=== PATIENT | female | born 1965 | race Caucasian/White ===

== ENCOUNTER 2020-10-16 17:16 | Emergency (ER) | payer MEDICAID ==
[2020-10-16] MEDS ORDERED: Cyclobenzaprine 10 MG Tab PO ONE (17:17)
[2020-10-16] MEDS ORDERED: Sodium Chloride 0.9% 10 ML Syringe FLUSH PRN (17:45)
[2020-10-16] MEDS ORDERED: Ondansetron 4 MG/2 ML SDV IVPUSH STA (18:03)
[2020-10-16] MEDS ORDERED: Pantoprazole 40 MG Vial IVPUSH ONE (18:03)
[2020-10-16] MEDS ORDERED: Morphine 4 MG/ML VIAL IVPUSH STA (18:03)
--- NOTE | 2020-10-16 18:15 | EDM.PDOC ---
ED HPI GENERAL MEDICAL PROBLEM - General Chief Complaint: Gastrointestinal Problem Stated Complaint: Abdominal pain Time Seen by Provider: 10/16/20 17:20 Source of Information: Reports: Patient, Family History Limitations: Reports: No Limitations - History of Present Illness INITIAL COMMENTS - FREE TEXT/NARRATIVE: Patient is a 54 YO WF who presented to the ED because of abdominal pain and melanotic stools. It started as diarrhea 5 days ago. 2 days ago she started to have melanotic stools which according to her was foul smelling. At about 12 noon today she started to have LLQ pain,8/10, cramping with associated nausea but no vomiting. - Related Data Allergies Allergy/AdvReac Type Severity Reaction Status Date / Time Penicillins Allergy Hives Verified 10/16/20 18:03 Sulfa (Sulfonamide Allergy Hives Verified 10/16/20 18:03 Antibiotics) Home Meds: Home Meds NK [No Known Home Meds] 10/16/20 [History] Past Medical History Genitourinary History: Reports: Other (See Below) Other Genitourinary History: Medullary Sponge Kidney Disease Musculoskeletal History: Reports: Back Pain, Chronic Social & Family History - Family History Family Medical History: No Pertinent Family History - Tobacco Use Tobacco Use Status *Q: Never Tobacco User - Caffeine Use Caffeine Use: Reports: None - Recreational Drug Use Recreational Drug Use: No ED ROS GENERAL - Review of Systems Review Of Systems: See Below Constitutional: Reports: No Symptoms HEENT: Reports: No Symptoms Respiratory: Reports: No Symptoms Cardiovascular: Reports: No Symptoms Endocrine: Reports: No Symptoms GI/Abdominal: Reports: Abdominal Pain, Black Stool, Nausea : Reports: No Symptoms Musculoskeletal: Reports: No Symptoms Skin: Reports: No Symptoms ED EXAM, GI/ABD - Physical Exam Exam: See Below Exam Limited By: No Limitations General Appearance: No Apparent Distress Ears: Normal External Exam, Normal Canal Nose: Normal Inspection, Normal Mucosa Throat/Mouth: Normal Inspection Head: Atraumatic, Normocephalic Neck: Normal Inspection, Supple, Non-Tender, Full Range of Motion Respiratory/Chest: No Respiratory Distress, Lungs Clear, Normal Breath Sounds Cardiovascular: Normal Peripheral Pulses, Regular Rate, Rhythm, No Edema, No Gallop, No JVD, No Murmur, No Rub GI/Abdominal Exam: Normal Bowel Sounds, Soft, Other (LLQ tenderness) Back Exam: Normal Inspection, Full Range of Motion Extremities: Normal Inspection, Normal Range of Motion Neurological: Alert, Oriented, CN II-XII Intact Course - Vital Signs Text/Narrative:: Lab result was reviewed and discussed with patient NS 1 L bolus Zofran 4 mg IV x1 Protonix 80 mg IV x1 Morphine 4 mg IV x1 Last Recorded V/S: Last Vital Signs Temp 36.6 C 10/16/20 17:16 Pulse 72 10/16/20 20:46 Resp 18 10/16/20 20:46 BP 151/86 H 10/16/20 20:46 Pulse Ox 97 10/16/20 20:46 - Orders/Labs/Meds Labs: Laboratory Tests 10/16/20 10/16/20 10/16/20 Range/Units 17:45 17:45 17:45 WBC 9.1 (3.0-10.3) x10-3/uL RBC 4.85 (3.60-5.20) x10(6)uL Hgb 12.1 (11.4-15.5) g/dL Hct 38.1 (34.2-48.2) % MCV 78.4 (76.7-100.5) fL MCH 25.0 (23.9-33.9) pg MCHC 31.9 (31.9-34.8) g/dL RDW 18.9 H (12.3-16.5) % Plt Count 411 (151-488) x10(3)uL MPV 8.3 (7.1-12.4) fL Neut % (Auto) 65.9 (30.8-76.2) % Lymph % (Auto) 24.5 (18.4-52.1) % Door % (Auto) 8.0 (4.4-15.7) % Eos % (Auto) 1.0 (0.6-8.1) % Baso % (Auto) 0.6 (0.2-1.5) % Neut # (Auto) 6.0 (1.5-6.3) x10-3/uL Lymph # (Auto) 2.2 (1.0-4.4) x10-3/uL Door # (Auto) 0.7 (0.3-1.0) x10-3/uL Eos # (Auto) 0.1 (0.0-0.8) x10-3/uL Baso # (Auto) 0.1 (0.0-0.1) x10-3/uL PT (9.0-11.1) sec INR (1.00-1.24) APTT (24.4-33.2) SECONDS Sodium 138 (135-145) mmol/L Potassium 4.0 (3.5-5.3) mmol/L Chloride 100 (100-110) mmol/L Carbon Dioxide 27 (21-32) mmol/L BUN 10 (7-18) mg/dL Creatinine 0.7 (0.55-1.02) mg/dL Est Cr Clr Drug Dosing 89.34 mL/min Estimated GFR (MDRD) > 60 (>60) BUN/Creatinine Ratio 14.3 (9-20) Glucose 123 H (80-116) mg/dL Calcium 8.7 (8.6-10.2) mg/dL Total Bilirubin 0.3 (0.1-1.3) mg/dL AST 201 H* (5-25) IU/L ALT 375 H* (12-36) U/L Alkaline Phosphatase 148 H (56-112) IU/L Total Protein 7.5 (6.0-8.0) g/dL Albumin 3.8 (3.5-5.2) g/dL Globulin 3.7 g/dL Albumin/Globulin Ratio 1.0 Amylase 21 L (25-115) U/L Lipase 38 L (73-393) U/L Urine Color (YELLOW) Urine Appearance (CLEAR) Urine pH (5.0-6.5) Ur Specific [place] (1.010-1.025) Urine Protein (NEGATIVE) mg/dL Urine Glucose (UA) (NORMAL) mg/dL Urine Ketones (NEGATIVE) mg/dL Urine Occult Blood (NEGATIVE) Urine Nitrite (NEGATIVE) Urine Bilirubin (NEGATIVE) Urine Urobilinogen (NEGATIVE) mg/dL Ur Leukocyte Esterase (NEGATIVE) Urine RBC (0-5) Urine WBC (0-5) Ur Squamous Epith Cells (NS,R,O) Urine Bacteria (NS) 10/16/20 10/16/20 Range/Units 17:45 19:44 WBC (3.0-10.3) x10-3/uL RBC (3.60-5.20) x10(6)uL Hgb (11.4-15.5) g/dL Hct (34.2-48.2) % MCV (76.7-100.5) fL MCH (23.9-33.9) pg MCHC (31.9-34.8) g/dL RDW (12.3-16.5) % Plt Count (151-488) x10(3)uL MPV (7.1-12.4) fL Neut % (Auto) (30.8-76.2) % Lymph % (Auto) (18.4-52.1) % Door % (Auto) (4.4-15.7) % Eos % (Auto) (0.6-8.1) % Baso % (Auto) (0.2-1.5) % Neut # (Auto) (1.5-6.3) x10-3/uL Lymph # (Auto) (1.0-4.4) x10-3/uL Door # (Auto) (0.3-1.0) x10-3/uL Eos # (Auto) (0.0-0.8) x10-3/uL Baso # (Auto) (0.0-0.1) x10-3/uL PT 10.5 (9.0-11.1) sec INR 0.97 L (1.00-1.24) APTT 24.4 (24.4-33.2) SECONDS Sodium (135-145) mmol/L Potassium (3.5-5.3) mmol/L Chloride (100-110) mmol/L Carbon Dioxide (21-32) mmol/L BUN (7-18) mg/dL Creatinine (0.55-1.02) mg/dL Est Cr Clr Drug Dosing mL/min Estimated GFR (MDRD) (>60) BUN/Creatinine Ratio (9-20) Glucose (80-116) mg/dL Calcium (8.6-10.2) mg/dL Total Bilirubin (0.1-1.3) mg/dL AST (5-25) IU/L ALT (12-36) U/L Alkaline Phosphatase (56-112) IU/L Total Protein (6.0-8.0) g/dL Albumin (3.5-5.2) g/dL Globulin g/dL Albumin/Globulin Ratio Amylase (25-115) U/L Lipase (73-393) U/L Urine Color Yellow (YELLOW) Urine Appearance Clear (CLEAR) Urine pH 6.0 (5.0-6.5) Ur Specific [place] 1.020 (1.010-1.025) Urine Protein Negative (NEGATIVE) mg/dL Urine Glucose (UA) Normal (NORMAL) mg/dL Urine Ketones Negative (NEGATIVE) mg/dL Urine Occult Blood Negative (NEGATIVE) Urine Nitrite Negative (NEGATIVE) Urine Bilirubin Negative (NEGATIVE) Urine Urobilinogen Normal (NEGATIVE) mg/dL Ur Leukocyte Esterase Negative (NEGATIVE) Urine RBC 0-5 (0-5) Urine WBC 0-5 (0-5) Ur Squamous Epith Cells Few H (NS,R,O) Urine Bacteria Few H (NS) Meds: Medications Discontinued Medications Generic Name Dose Route Start Last Admin Trade Name Freq PRN Reason Stop Dose Admin Cyclobenzaprine HCl 80 mg 10/16/20 17:17 Cyclobenzaprine 10 Mg Tab PO 10/16/20 17:18 .STK-MED ONE Sodium Chloride 1,000 mls @ 999 mls/hr 10/16/20 18:15 10/16/20 20:20 Normal Saline IV 999 mls/hr ASDIRECTED ROCIO Administration Iopamidol 100 ml 10/16/20 19:13 10/16/20 19:56 Iopamidol 755 Mg/Ml 100 Ml Bottle IV 10/16/20 19:14 100 ml . DIRECTED ONE Administration Morphine Sulfate 4 mg 10/16/20 18:03 10/16/20 18:38 Morphine 4 Mg/Ml Vial IVPUSH 10/16/20 18:04 4 mg NOW STA Administration Ondansetron HCl 4 mg 10/16/20 18:03 10/16/20 18:38 Ondansetron 4 Mg/2 Ml Sdv IVPUSH 10/16/20 18:04 4 mg NOW STA Administration Pantoprazole Sodium 80 mg 10/16/20 18:03 10/16/20 18:31 Pantoprazole 40 Mg Vial IVPUSH 10/16/20 18:04 80 mg .BOLUS ONE Administration Sodium Chloride 10 ml 10/16/20 17:45 Sodium Chloride 0.9% 10 Ml Syringe FLUSH ASDIRECTED PRN Keep Vein Open Departure - Departure Time of Disposition: 20:20 Disposition: Home, Self-Care 01 Condition: Good Clinical Impression: Abdominal pain, Elevated liver enzymes - Discharge Information Instructions: Upper Gastrointestinal Bleeding, Liver Function Tests, Hiatal Hernia Referrals: PCP,None [Primary Care Provider] - 2 Days Forms: ED Department Discharge Additional Instructions: 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
[2020-10-16] MEDS: Sodium Chloride 0.9% 1,000 ML IV SCH ×2 (18:31→20:20)
[2020-10-16] MEDS ORDERED: Iopamidol 755 Mg/ML 100 ML Bottle IV ONE (19:13)
--- NOTE | 2020-10-16 22:19 | ER ---
DATE SEEN: 10/16/2020 CHIEF COMPLAINT: Melena stools. HISTORY OF PRESENT ILLNESS: A 54-year-old female who was seen by Dr. Louis Liang. She complains of melena stools, diarrhea for at least 2 days. Also has back pain and epigastric pain. I was tasked with giving the results of labs which are the following; CT revealed hiatal hernia, and mild dilatation of the common bile duct. No other findings to suggest cause of abdominal pain or diarrhea. LABORATORY DATA: Labs revealed normal white cell count and hemoglobin, but AST and ALT were elevated at 201 and 375. She denied any use of alcohol or excessive Tylenol. FINAL IMPRESSION: 1. Hiatal hernia. 2. Melena stools. 3. Abnormal liver function tests. 4. Back pain. PLAN: I sent her home after 2 L of normal saline. Flexeril to be used at night for muscle spasms. 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 Follow up with the PCP on Wednesday. /[id number] CHAUNCEY/KOFIL
== END 2020-10-16 21:35 | disposition home or self-care (01) ==
LOC: FB.ED 17:16
DX: K44.9 Diaphragmatic hernia without obstruction or gangrene (principal); K92.1 Melena; R79.89 Other specified abnormal findings of blood chemistry
CPT/HCPCS: 36415; 74177; 80053; 81001; 82150; 83690; 85025; 85610; 85730; 96374; 96375; 99284; A9270; C9113; J2270; J2405; J7030; Q9967

== ENCOUNTER 2021-01-06 06:59 | Emergency (ER) | payer MEDICAID ==
--- NOTE | 2021-01-06 07:22 | EDM.PDOC ---
ED HPI GENERAL MEDICAL PROBLEM - General Stated Complaint: POSS UTI Time Seen by Provider: 01/06/21 07:10 Source of Information: Reports: Patient History Limitations: Reports: No Limitations - History of Present Illness INITIAL COMMENTS - FREE TEXT/NARRATIVE: Patient presented to the ED because of Rt flank pain, dysuria and frequency which started yesterday. there is no fever, chills, nausea or vomiting. - Related Data Allergies Allergy/AdvReac Type Severity Reaction Status Date / Time Penicillins Allergy Hives Verified 10/16/20 18:03 Sulfa (Sulfonamide Allergy Hives Verified 10/16/20 18:03 Antibiotics) Home Meds: Home Meds Ciprofloxacin HCl [Cipro] 500 mg PO BID #6 tablet 01/06/21 [Rx] Phenazopyridine HCl [Pyridium] 200 mg PO BID #6 tablet 01/06/21 [Rx] Past Medical History Genitourinary History: Reports: Other (See Below) Other Genitourinary History: Medullary Sponge Kidney Disease Musculoskeletal History: Reports: Back Pain, Chronic Social & Family History - Family History Family Medical History: No Pertinent Family History - Caffeine Use Caffeine Use: Reports: None ED ROS GENERAL - Review of Systems Review Of Systems: See Below Constitutional: Reports: No Symptoms HEENT: Reports: No Symptoms Respiratory: Reports: No Symptoms Cardiovascular: Reports: No Symptoms Endocrine: Reports: No Symptoms GI/Abdominal: Reports: No Symptoms : Reports: Dysuria, Flank Pain Musculoskeletal: Reports: No Symptoms Skin: Reports: No Symptoms Neurological: Reports: No Symptoms Psychiatric: Reports: No Symptoms ED EXAM, RENAL/ - Physical Exam Exam: See Below Exam Limited By: No Limitations General Appearance: Alert, No Apparent Distress Ears: Normal External Exam, Normal Canal Nose: Normal Inspection, Normal Mucosa, No Blood Throat/Mouth: Normal Inspection, Normal Lips, Normal Teeth Head: Atraumatic, Normocephalic Neck: Normal Inspection, Supple, Non-Tender, Full Range of Motion Respiratory/Chest: No Respiratory Distress, Lungs Clear, Normal Breath Sounds, No Accessory Muscle Use, Chest Non-Tender Cardiovascular: Normal Peripheral Pulses, Regular Rate, Rhythm, No Edema, No Gallop, No JVD, No Murmur, No Rub GI/Abdominal: Normal Bowel Sounds, Soft, No Organomegaly, No Distention, Other (suprapubic tenderness) Back Exam: Normal Inspection, Full Range of Motion Extremities: Normal Inspection, Normal Range of Motion Course - Orders/Labs/Meds Orders: Active Orders 24 hr Category Date Time Status UA W/MICROSCOPIC [URIN] Stat Lab 01/06/21 07:11 Ordered Departure - Departure Time of Disposition: 07:40 Disposition: Home, Self-Care 01 Condition: Good Clinical Impression: UTI (urinary tract infection) - Discharge Information Prescriptions: Ciprofloxacin HCl [Cipro] 500 mg PO BID #6 tablet Phenazopyridine HCl [Pyridium] 200 mg PO BID #6 tablet Instructions: Urinary Tract Infection, Adult, [id number] Additional Instructions: Please read discharge instructions on UTI Drink at least 2 liters of water while being treated Cipro 500 mg twice daily for 3 days Pyridium 200 mg twice daily for 3 days Follow up as needed - My Orders Last 24 Hours: My Active Orders 01/06/21 07:11 UA W/MICROSCOPIC [URIN] Stat - Assessment/Plan Last 24 Hours: My Active Orders 01/06/21 07:11 UA W/MICROSCOPIC [URIN] Stat
== END 2021-01-06 07:47 | disposition home or self-care (01) ==
LOC: FB.ED 06:59
DX: N39.0 Urinary tract infection, site not specified (principal); Z88.0 Allergy status to penicillin; Z88.2 Allergy status to sulfonamides
CPT/HCPCS: 81001; 99284

== ENCOUNTER 2021-02-14 15:59 | Emergency (ER) | payer MEDICAID ==
--- NOTE | 2021-02-14 17:09 | EDM.PDOC ---
ED HPI GENERAL MEDICAL PROBLEM - General Chief Complaint: Lower Extremity Injury/Pain Stated Complaint: POSSIBLE BROKE LEFT FOOT Time Seen by Provider: 02/14/21 16:20 Source of Information: Reports: Patient History Limitations: Reports: No Limitations - History of Present Illness INITIAL COMMENTS - FREE TEXT/NARRATIVE: pt tripped at home, c/o sever left ankle/foot pain, denies any other injuries or any other concerns, unable to jennie weight . Left Foot Pain Score (Numeric/FACES): 7 - Related Data Allergies Allergy/AdvReac Type Severity Reaction Status Date / Time Penicillins Allergy Hives Verified 10/16/20 18:03 Sulfa (Sulfonamide Allergy Hives Verified 10/16/20 18:03 Antibiotics) Home Meds: Home Meds Ciprofloxacin HCl [Cipro] 500 mg PO BID #6 tablet 01/06/21 [Rx] Phenazopyridine HCl [Pyridium] 200 mg PO BID #6 tablet 01/06/21 [Rx] Past Medical History Genitourinary History: Reports: Other (See Below) Other Genitourinary History: Medullary Sponge Kidney Disease Musculoskeletal History: Reports: Back Pain, Chronic Social & Family History - Family History Family Medical History: No Pertinent Family History - Tobacco Use Tobacco Use Status *Q: Never Tobacco User - Caffeine Use Caffeine Use: Reports: None - Recreational Drug Use Recreational Drug Use: No Review of Systems - Review of Systems Review Of Systems: See Below Constitutional: Reports: No Symptoms Respiratory: Reports: No Symptoms Cardiovascular: Reports: No Symptoms ED EXAM, GENERAL - Physical Exam Exam: See Below Exam Limited By: No Limitations General Appearance: Alert, Mild Distress, Moderate Distress Head: Atraumatic Neck: Normal Inspection, Supple, Non-Tender Respiratory/Chest: No Respiratory Distress, Lungs Clear Cardiovascular: Normal Peripheral Pulses, Regular Rate, Rhythm, No Murmur GI/Abdominal: Normal Bowel Sounds, Soft Extremities: Other (swelling and tenderness over the lateral side of left ankle, tenderness over the dorsum of left foot, skin is intact, LLE is NVI. ) Course - Vital Signs Text/Narrative:: Xray shows no acute fractures , there is soft tissue swelling consistent with ligaments injury. pt has sprained left ankle, a splint was applied and crutches / hydrocodone were provided, pt to follow with PCP on Wednesday for re-check. Last Recorded V/S: Last Vital Signs Temp 37.9 C 02/14/21 16:04 Pulse 132 H 02/14/21 16:04 Resp 20 02/14/21 16:04 BP 137/81 02/14/21 16:04 Pulse Ox 95 02/14/21 16:04 - Orders/Labs/Meds Orders: Active Orders 24 hr Category Date Time Status Ankle Min 3V Lt [CR] Stat Exams 02/14/21 16:12 Ordered Foot 2V Lt [CR] Stat Exams 02/14/21 16:11 Taken Departure - Departure Time of Disposition: 17:08 Disposition: Home, Self-Care 01 Clinical Impression: Ankle sprain - Discharge Information Referrals: Casandra Iqbal HVAC PROJECT MANAGER [Primary Care Provider] - Sepsis Event Note (ED) - Evaluation Sepsis Screening Result: No Definite Risk - Focused Exam Vital Signs: Vital Signs Temp Pulse Resp BP Pulse Ox 02/14/21 16:04 37.9 C 132 H 20 137/81 95 - My Orders Last 24 Hours: My Active Orders 02/14/21 16:11 Foot 2V Lt [CR] Stat 02/14/21 16:12 Ankle Min 3V Lt [CR] Stat - Assessment/Plan Last 24 Hours: My Active Orders 02/14/21 16:11 Foot 2V Lt [CR] Stat 02/14/21 16:12 Ankle Min 3V Lt [CR] Stat
[2021-02-14] MEDS ORDERED: Acetaminophen/oxyCODONE 325-5 MG Tab PO ONE (17:20)
--- NOTE | 2021-02-14 17:38 | CR ---
LEFT FOOT INDICATION: Fall. FINDINGS: Three views of the left foot were obtained 02/14/21 - no comparison. A tiny plantar calcaneal spur is noted. There is some minimal degenerative change at the interphalangeal joint of the great toe and DIP joints of the third and to a lesser extent second and fourth toes as well as the fifth toe. The fifth toe degenerative change is at the interphalangeal joint. A definite fracture or dislocation was not identified. IMPRESSION: No acute fracture or dislocation. If symptoms persist - if occult fracture site is suspected clinically, reexamination in 10-14 days may be helpful. LEFT ANKLE INDICATION: Fell on stairs, tripped over dog. Lateral ankle and anterior foot swelling. FINDINGS: Three views of the left ankle were obtained and revealed soft tissue swelling overlying the lateral malleolus. There is widening of the lateral ankle mortise joint space suggesting instability likely on the basis of the lateral ligamentous injury/strain. A definite fracture site or dislocation was not otherwise suggested. Bone density appeared fairly normal. IMPRESSION: Probable lateral ligamentous strain with widening of the lateral ankle joint mortise space. Report was called to Dr. Dm Noble at 1700 hours 02/14/21. [facility]
== END 2021-02-14 17:31 | disposition home or self-care (01) ==
LOC: FB.ED 15:59
DX: S93.402A Sprain of unspecified ligament of left ankle, initial encounter (principal); Z88.0 Allergy status to penicillin; Z88.2 Allergy status to sulfonamides; X50.1XXA Overexertion from prolonged static or awkward postures, initial encounter; Y93.01 Activity, walking, marching and hiking; Y92.009 Unspecified place in unspecified non-institutional (private) residence as the place of occurrence of the external cause
CPT/HCPCS: 73610; 73620; 99283; A9270

== ENCOUNTER 2021-06-18 23:25 | Emergency (ER) | payer MEDICAID ==
[2021-06-18] MEDS ORDERED: Ciprofloxacin 500 MG Tab PO ONE (23:26)
== END 2021-06-19 00:05 | disposition home or self-care (01) ==
LOC: FB.ED 23:25
DX: N39.0 Urinary tract infection, site not specified (principal); Z87.891 Personal history of nicotine dependence; Z88.0 Allergy status to penicillin; Z88.2 Allergy status to sulfonamides
CPT/HCPCS: 81001; 81025; 87086; 99283; A9270-GY

== ENCOUNTER 2023-04-17 10:42 | Emergency (ER) | payer MEDICAID ==
[2023-04-17] MEDS ORDERED: Sodium Chloride 0.9% 10 ML Syringe FLUSH PRN (11:00)
[2023-04-17] MEDS: Sodium Chloride 0.9% 1,000 ML IV SCH (11:11)
[2023-04-17] MEDS: Morphine 4 MG/ML VIAL IVPUSH ONE (11:12)
[2023-04-17] MEDS: Sodium Chloride 0.9% 10 ML Syringe FLUSH PRN (11:12)
[2023-04-17 11:16] LABS: BASOPHILS PERCENT AUTO 0.5 % (0.2-1.5); EOSINOPHILS ABSOLUTE AUTO 0.1 x10-3/uL (0.0-0.8); EOSINOPHILS PERCENT AUTO 1.8 % (0.6-8.1); HEMATOCRIT 42.9 % (34.2-48.2); HEMOGLOBIN 14.4 g/dL (11.4-15.5); LYMPHOCYTES ABSOLUTE AUTO 2.6 x10-3/uL (1.0-4.4); LYMPHOCYTES PERCENT AUTO 34.8 % (18.4-52.1); MEAN CORPUSCULAR HEMOGLOBIN 29.3 pg (23.9-33.9); MEAN CORPUSCULAR HGB CONC 33.5 g/dL (31.9-34.8); MEAN CORPUSCULAR VOLUME 87.5 fL (76.7-100.5); MONOCYTES ABSOLUTE AUTO 0.6 x10-3/uL (0.3-1.0); MONOCYTES PERCENT AUTO 8.2 % (4.4-15.7); NEUTROPHILS PERCENT AUTO 54.7 % (30.8-76.2); PLATELET COUNT,PLT 306 x10(3)uL (151-488); RED BLOOD CELL COUNT 4.91 x10(6)uL (3.60-5.20); RED CELL DISTRIBUTION WIDTH 14.1 % (12.3-16.5); WHITE BLOOD CELL COUNT,WBC 7.4 x10-3/uL (3.0-10.3)
[2023-04-17 11:19] LABS: BLOOD UREA NITROGEN,BUN 7 mg/dL (7-18); BUN/CREATININE RATIO 11.7 (9-20); CALCIUM 9.6 mg/dL (8.6-10.2); CARBON DIOXIDE,CO2 30 mmol/L (21-32); CHLORIDE,CL 103 mmol/L (100-110); CREATININE 0.6 mg/dL (0.55-1.02); ESTIMATED GFR 105 mL/min (>60); GLUCOSE RANDOM 105 mg/dL (80-116); POTASSIUM,K 3.4 mmol/L (3.5-5.3); SODIUM,NA 140 mmol/L (135-145)
[2023-04-17 11:25] LABS: ALANINE AMINOTRANSFERASE,ALT 23 U/L (12-36); ALBUMIN 3.6 g/dL (3.5-5.2); ALKALINE PHOSPHATASE 134 IU/L (56-112); AMYLASE 26 U/L (25-115); ASPARTATE AMNIOTRANSFERASE,AST 15 IU/L (5-25); BILIRUBIN TOTAL 0.4 mg/dL (0.1-1.3); PROTEIN TOTAL,TP 7.4 g/dL (6.0-8.0)
[2023-04-17] MEDS: Iopamidol 755 Mg/ML 100 ML Bottle IV SCH (11:36)
[2023-04-17] MEDS: Acetaminophen/oxyCODONE 325-5 MG Tab PO STA (12:10)
[2023-04-17] MEDS: Potassium Chloride 20 MEQ Tab.ER PO ONE (12:10)
[2023-04-17] MEDS: Ciprofloxacin 500 MG Tab PO ONE (12:11)
[2023-04-17] MEDS: metroNIDAZOLE 500 MG Tab PO ONE (12:11)
== END 2023-04-17 13:03 | disposition home or self-care (01) ==
LOC: FB.ED 10:42
DX: K57.32 Diverticulitis of large intestine without perforation or abscess without bleeding (principal); E87.6 Hypokalemia; Z79.899 Other long term (current) drug therapy; Z88.0 Allergy status to penicillin; Z88.2 Allergy status to sulfonamides
CPT/HCPCS: 36415; 74177; 80053; 82150; 83690; 85025; 96361; 96374; 99284; 99284-25; A9270-GY; J2270; J3490; J7030; Q9967

== ENCOUNTER 2023-04-19 18:04 | Emergency (ER) | payer MEDICAID ==
[2023-04-19] MEDS ORDERED: metroNIDAZOLE/Normal Saline 500 MG in Premix Bag 1 BAG IV ONE (19:40)
[2023-04-19] MEDS ORDERED: Sodium Chloride 0.9% 10 ML Syringe FLUSH PRN (19:40)
[2023-04-19] MEDS ORDERED: Ondansetron 4 MG/2 ML SDV IVPUSH ONE (19:40)
[2023-04-19] MEDS ORDERED: Ciprofloxacin in D5W 400 MG in Premix Bag 1 BAG IV ONE ×2 (19:40)
[2023-04-19] MEDS ORDERED: Naloxone 0.4 MG/ML SDV IVPUSH PRN (19:40)
[2023-04-19] MEDS ORDERED: Morphine 4 MG/ML VIAL IVPUSH ONE ×2 (19:40→22:06)
[2023-04-19] MEDS ORDERED: Ketorolac 30 MG/ML SDV IVPUSH ONE (19:42)
[2023-04-19 20:08] LABS: BASOPHILS PERCENT AUTO 0.8 % (0.2-1.5); EOSINOPHILS ABSOLUTE AUTO 0.1 x10-3/uL (0.0-0.8); EOSINOPHILS PERCENT AUTO 1.9 % (0.6-8.1); HEMATOCRIT 42.5 % (34.2-48.2); LYMPHOCYTES ABSOLUTE AUTO 2.3 x10-3/uL (1.0-4.4); LYMPHOCYTES PERCENT AUTO 36.9 % (18.4-52.1); MEAN CORPUSCULAR VOLUME 87.9 fL (76.7-100.5); MEAN PLATELET VOLUME 7.8 fL (7.1-12.4); MONOCYTES ABSOLUTE AUTO 0.5 x10-3/uL (0.3-1.0); MONOCYTES PERCENT AUTO 7.5 % (4.4-15.7); NEUTROPHILS ABSOLUTE AUTO 3.2 x10-3/uL (1.5-6.3); NEUTROPHILS PERCENT AUTO 52.9 % (30.8-76.2); PLATELET COUNT,PLT 320 x10(3)uL (151-488); RED BLOOD CELL COUNT 4.83 x10(6)uL (3.60-5.20); RED CELL DISTRIBUTION WIDTH 14.4 % (12.3-16.5); WHITE BLOOD CELL COUNT,WBC 6.1 x10-3/uL (3.0-10.3)
[2023-04-19 20:14] LABS: BLOOD UREA NITROGEN,BUN 6 mg/dL (7-18); CALCIUM 9.3 mg/dL (8.6-10.2); CARBON DIOXIDE,CO2 30 mmol/L (21-32); CHLORIDE,CL 103 mmol/L (100-110); CREATININE 0.6 mg/dL (0.55-1.02); ESTIMATED GFR 105 mL/min (>60); GLUCOSE RANDOM 108 mg/dL (80-116); POTASSIUM,K 3.8 mmol/L (3.5-5.3); SODIUM,NA 141 mmol/L (135-145)
[2023-04-19 20:20] LABS: ALANINE AMINOTRANSFERASE,ALT 25 U/L (12-36); ALBUMIN 3.6 g/dL (3.5-5.2); ALKALINE PHOSPHATASE 113 IU/L (56-112); ASPARTATE AMNIOTRANSFERASE,AST 17 IU/L (5-25); BILIRUBIN TOTAL 0.3 mg/dL (0.1-1.3); PROTEIN TOTAL,TP 7.1 g/dL (6.0-8.0)
[2023-04-19] MEDS ORDERED: Gabapentin 300 MG Cap PO ONE (22:06)
[2023-04-19] MEDS ORDERED: Acyclovir 400 MG Tab PO ONE (22:49)
== END 2023-04-20 00:05 | disposition home or self-care (01) ==
LOC: FB.ED 18:04
DX: K57.92 Diverticulitis of intestine, part unspecified, without perforation or abscess without bleeding (principal); B02.9 Zoster without complications; Z88.0 Allergy status to penicillin; Z88.2 Allergy status to sulfonamides; Z87.891 Personal history of nicotine dependence
CPT/HCPCS: 36415; 80053; 85025; 96365; 96367; 96375; 96376; 99284; 99284-25; A9270-GY; J0744; J1885; J2270; J2405; J3490

== ENCOUNTER 2024-11-08 11:53 | Emergency (ER) | payer MEDICAID ==
[2024-11-08 12:32] LABS: APPEARANCE,URINE CLOUDY (CLEAR); BILIRUBIN,URINE NEGATIVE (NEGATIVE); COLOR,URINE YELLOW (YELLOW); GLUCOSE,URINE NORMAL (NORMAL); KETONES,URINE NEGATIVE (NEGATIVE); LEUKOCYTE ESTERASE,URINE LARGE (NEGATIVE); NITRITE,URINE NEGATIVE (NEGATIVE); OCCULT BLOOD,URINE LARGE (NEGATIVE); PROTEIN,URINE 100 mg/dL (NEGATIVE); UROBILINOGEN,URINE NORMAL (NEGATIVE)
[2024-11-08 12:37] LABS: WBC,URINE PACKED (0-5)
== END 2024-11-08 12:32 | disposition home or self-care (01) ==
LOC: FB.ED 11:53
DX: N30.00 Acute cystitis without hematuria (principal); Z88.0 Allergy status to penicillin; Z88.2 Allergy status to sulfonamides; Z79.899 Other long term (current) drug therapy
CPT/HCPCS: 81001; 87086; 87088; 87186; 99283; 99284